=== PATIENT | male | born 1955 | race Caucasian/White ===

== ENCOUNTER 2021-03-31 15:53 | Emergency (ER) | payer OTHER, MEDICAID ==
[~2021-03-31] VITALS: Ht 165.1 cm; Wt 66.2 kg
[2021-03-31 16:20] VITALS: BP_SYST 136; BP_SYST 158; BP_DIAS 104; BP_DIAS 110
--- NOTE | 2021-03-31 16:49 | NUR ---
PATIENT AMBULATED TO BED 02 WITH STEADY GAIT
--- NOTE | 2021-03-31 16:51 | NUR ---
65 Y/O MALE C/O RIGHT FLANK PAIN 10/10 DESCRIBES SHARP X 1 WEEK. PT REPORTS MILD HEMATURIA, DENIES DYSURIA. DENIES N/V. DENIES RX TAKEN. DENIES FEVER/CHILLS. PMH: HTN, HEPAPTIS C ALLERGY: TETRACYCLINE
--- NOTE | 2021-03-31 16:54 | NUR ---
Pt ambulated to restroom for UA collection.
--- NOTE | 2021-03-31 17:27 | NUR ---
Dr. Wiseman at pt bedside for further evaluation.
[2021-03-31] MEDS: KETOROLAC 60 MG/2 ML VIAL IM ONE (17:44)
--- NOTE | 2021-03-31 17:45 | NUR ---
master control technician at pt bedside.
[2021-03-31 17:53] LABS: APPEARANCE,URINE CLEAR (CLEAR); BILIRUBIN,URINE NEGATIVE (NEGATIVE); BLOOD, URINE NEGATIVE (NEGATIVE); COLOR,URINE YELLOW (YELLOW); LEUKOCYTE ESTERASE ,URINE NEGATIVE (NEGATIVE); NITRITE, URINE NEGATIVE (NEGATIVE); UGLUCOSE NEGATIVE (NEGATIVE)
[2021-03-31 17:54] LABS: BASOPHILS # (AUTO) 0.1 K/uL (0.00-0.22); EOSINOPHILS # (AUTO) 0.3 K/uL (0-0.4); HEMATOCRIT 41.6 % (36-52); LYMPHOCYTES # (AUTO) 1.6 K/uL (2.0-11.5); LYMPHOCYTES % (AUTO) 22.4 % (20.5-51.1); MEAN CORPUSCULAR HEMOGLOBIN 32 pg (27-31); MEAN CORPUSCULAR HGB CONC 34 g/dL (33-37); MEAN CORPUSCULAR VOLUME 95.6 fL (80-94); MONOCYTES # (AUTO) 0.9 K/uL (0.8-1.0); NEUTROPHILS # (AUTO) 4.4 K/uL (1.8-7.7); NEUTROPHILS % (AUTO) 60.6 % (42.2-75.2); PLATELET COUNT (AUTO) 369 K/uL (140-450); RED BLOOD CELL COUNT(AUTO) 4.35 MIL/uL (4.20-6.10); RED CELL DISTRIBUTION WIDTH 12.5 % (11.6-13.7); WHITE BLOOD COUNT (AUTO) 7.3 K/uL (4.8-10.8)
[2021-03-31 18:08] LABS: ALBUMIN 3.6 g/dL (3.4-5.0); ANION GAP 9.6 (8-16); CARBON DIOXIDE 30.5 mmol/L (21-32); CREATININE 0.9 mg/dL (0.6-1.3); POTASSIUM 4.1 mmol/L (3.5-5.1); TOTAL BILIRUBIN 0.5 mg/dL (0.0-1.0)
[2021-03-31] MEDS ORDERED: NAPR-1704 PO (18:22)
[2021-03-31 18:30] VITALS: BP 136/104
--- NOTE | 2021-03-31 18:30 | NUR ---
Patient discharged with v/s stable. Written and verbal after care instructions given flank pain and explained. Patient alert, oriented and verbalized understanding of instructions. Ambulatory with steady gait. All questions addressed prior to discharge. ID band removed. Patient advised to follow up with PMD. Rx of naroxen 375mg PO BID PRN pain given. Patient educated on indication of medication including possible reaction and side effects. Opportunity to ask questions provided and answered.
== END 2021-03-31 18:30 | disposition home or self-care (01) ==
LOC: MED 15:53
DX: R10.9 Unspecified abdominal pain (principal); F17.210 Nicotine dependence, cigarettes, uncomplicated; I10 Essential (primary) hypertension; R31.9 Hematuria, unspecified; F15.10 Other stimulant abuse, uncomplicated; Z71.6 Tobacco abuse counseling; Z87.442 Personal history of urinary calculi; Z88.1 Allergy status to other antibiotic agents
CPT/HCPCS: 36415; 80053; 81003; 85025; 87086; 99283; J1885